=== PATIENT | female | born 1985 | race Caucasian/White ===

== ENCOUNTER 2024-04-02 09:31 | Emergency (ER) | payer OTHER ==
[~2024-04-02] VITALS: Ht 157.5 cm; Wt 68.0 kg
[~2024-04-02 09:31] MED LIST: (None)20 M1 PO; AZIT250 PO; CYCL10 PO; HYDACE5 PO; IBUP800 PO; NAPR375 PO; NAPR500 PO; PENVK500 PO; PROM25 PO; RXCYCL10 PO; RXNEOPOLHC AD; TRAM50 PO; Verotin-Gr Cap1 EACH PO; Zofran Odt4 MG SL; Zofran4 MG PO
[2024-04-02 10:17] VITALS: BP 170/104
[2024-04-02 10:56] LABS: CORONAVIRUS COVID-19 AG Negative (NEGATIVE); INFLUENZA A AG Negative (NEGATIVE); INFLUENZA B AG Negative (NEGATIVE)
== END 2024-04-02 11:56 | disposition home or self-care (01) ==
LOC: ER 09:31
PROVIDERS: Physician Assistant
DX: B34.9 Viral infection, unspecified (principal); F15.93 Other stimulant use, unspecified with withdrawal; I10 Essential (primary) hypertension; F17.200 Nicotine dependence, unspecified, uncomplicated; Z11.52 Encounter for screening for COVID-19
CPT/HCPCS: 87428-QW; 99284